=== PATIENT | male | born 1990 ===

== ENCOUNTER → 2021-07-10 | Outpatient (CLI) | payer OTHER | LOC: MHCPAIN 13:03 | DX: M47.816 Spondylosis without myelopathy or radiculopathy, lumbar region (principal); M53.3 Sacrococcygeal disorders, not elsewhere classified; M54.16 Radiculopathy, lumbar region | CPT/HCPCS: G0463 ==

== ENCOUNTER → 2021-07-18 | Outpatient (CLI) | payer OTHER | LOC: MHCPAIN 12:34 | DX: M47.816 Spondylosis without myelopathy or radiculopathy, lumbar region (principal); M53.3 Sacrococcygeal disorders, not elsewhere classified; M54.16 Radiculopathy, lumbar region | CPT/HCPCS: J1100; Q9967 ==

== ENCOUNTER → 2021-08-07 | Outpatient (CLI) | payer OTHER | LOC: MHCPAIN 14:21 | DX: M47.896 Other spondylosis, lumbar region (principal); M54.50 Low back pain, unspecified; M53.3 Sacrococcygeal disorders, not elsewhere classified; G89.29 Other chronic pain | CPT/HCPCS: G0463 ==